=== PATIENT | female | born 1980 | race Caucasian/White ===

== ENCOUNTER 2020-04-19 14:45 | Outpatient (REF) | payer OTHER, SELFPAY ==
[2020-04-19 18:35] LABS: Free T4 (Free Thyroxine) 1.07 ng/dL (0.71-1.85); Thyroid Stimulating Hormone 1.91 mIU/mL (0.32-4.0)
== END 2020-04-19 14:46 | disposition home or self-care (01) ==
LOC: HO.MANLR 14:45
PROVIDERS: PCP Physician Assistant; Visit Provider Physician Assistant
DX: E03.9 Hypothyroidism, unspecified (principal)
CPT/HCPCS: 84439; 84443

== ENCOUNTER 2020-08-20 18:38 | Outpatient (REF) | payer OTHER, SELFPAY | END 2020-08-20 18:39 | disposition home or self-care (01) | LOC: HO.LNP 18:38 | PROVIDERS: Visit Provider Family Medicine | DX: Z20.822 Contact with and (suspected) exposure to COVID-19 (principal); R05 Cough | CPT/HCPCS: U0003; U0005 ==

== ENCOUNTER 2020-10-18 09:01 | Outpatient (REF) | payer OTHER, SELFPAY ==
[2020-10-18 11:22] LABS: Free T4 (Free Thyroxine) 0.69 ng/dL (0.71-1.85); Thyroid Stimulating Hormone 4.75 uIU/mL (0.32-4.0)
== END 2020-10-18 09:02 | disposition home or self-care (01) ==
LOC: HO.MANLDS 09:01
PROVIDERS: PCP Internal Medicine; Visit Provider Physician Assistant
DX: E03.9 Hypothyroidism, unspecified (principal)
CPT/HCPCS: 36415; 84439; 84443

== ENCOUNTER 2021-03-14 11:10 | Outpatient (REF) | payer OTHER, SELFPAY ==
[2021-03-14 14:16] LABS: Free T4 (Free Thyroxine) 0.76 ng/dL (0.71-1.85); Thyroid Stimulating Hormone 4.95 uIU/mL (0.32-4.0)
== END 2021-03-14 11:11 | disposition home or self-care (01) ==
LOC: HO.MANLDS 11:10
PROVIDERS: PCP Physician Assistant; Visit Provider Physician Assistant
DX: E03.9 Hypothyroidism, unspecified (principal)
CPT/HCPCS: 36415; 84439; 84443

== ENCOUNTER 2021-07-04 09:27 | Outpatient (REF) | payer OTHER, SELFPAY ==
[2021-07-04 12:08] LABS: Free T4 (Free Thyroxine) 0.79 ng/dL (0.71-1.85); Thyroid Stimulating Hormone 6.09 uIU/mL (0.32-4.0)
== END 2021-07-04 09:28 | disposition home or self-care (01) ==
LOC: HO.MANLDS 09:27
PROVIDERS: PCP Physician Assistant; Visit Provider Physician Assistant
DX: E03.9 Hypothyroidism, unspecified (principal)
CPT/HCPCS: 36415; 84439; 84443

== ENCOUNTER 2021-07-26 15:16 | Outpatient (REF) | payer OTHER, SELFPAY ==
[2021-07-26 18:26] LABS: Free T4 (Free Thyroxine) 0.95 ng/dL (0.71-1.85); Thyroid Stimulating Hormone 2.24 uIU/mL (0.32-4.0)
== END 2021-07-26 15:17 | disposition home or self-care (01) ==
LOC: HO.MANLDS 15:16
PROVIDERS: PCP Physician Assistant; Visit Provider Physician Assistant
DX: E03.8 Other specified hypothyroidism (principal)
CPT/HCPCS: 36415; 84439; 84443

== ENCOUNTER 2022-01-16 14:28 | Outpatient (REF) | payer OTHER, SELFPAY ==
[2022-01-16 18:13] LABS: Free T4 (Free Thyroxine) 0.96 ng/dL (0.71-1.85)
== END 2022-01-16 14:29 | disposition home or self-care (01) ==
LOC: HO.MANLDS 14:28
PROVIDERS: Visit Provider Physician Assistant
DX: E03.8 Other specified hypothyroidism (principal)
CPT/HCPCS: 36415; 84439; 84443

== ENCOUNTER 2022-07-19 14:21 | Outpatient (REF) | payer OTHER, SELFPAY ==
[2022-07-19 18:57] LABS: Free T4 (Free Thyroxine) 1.04 ng/dL (0.71-1.85); Thyroid Stimulating Hormone 2.01 uIU/mL (0.32-4.0)
== END 2022-07-19 14:22 | disposition home or self-care (01) ==
LOC: HO.MANLDS 14:21
PROVIDERS: Visit Provider Physician Assistant
DX: E03.8 Other specified hypothyroidism (principal)
CPT/HCPCS: 36415; 84439; 84443